=== PATIENT | female | born 1975 | race Two or more races ===

== ENCOUNTER → 2024-07-04 | Outpatient (CLI) | payer MEDICAID, SELFPAY ==
--- NOTE | 2024-07-04 13:00 | XR_ITS ---
Examination: Screening digital mammography, bilateral Computer aided detection 3-D breast Tomosynthesis, bilateral Date and time of exam: July 04, 2024 1306 hours Comparison January 17, 2017 Indication: Screening Technique: Nonmagnified MLO, CC views of the breasts to been obtained, reconstructed from 3-D Tomosynthesis images. R2 computer aided detection program utilized for evaluation of suspicious masses and/or abnormal calcifications. 3-D Tomosynthesis images obtained. Findings: The breasts are heterogeneously dense, which may obscure small masses Benign calcifications 4 mm round mass upper left breast MLO view, 6.6 cm from the nipple Impression: BI-RADS Category 0: Incomplete: Need additional imaging evaluation 4 mm round mass upper left breast MLO view 6.6 cm from the nipple. Recommend follow-up spot tomographic views upper outer quadrant left breast bilateral breast sonography follow-up to complete the workup
== END | disposition home or self-care (01) ==
PROVIDERS: PCP Family Medicine; Referring Provider Family Medicine; Visit Provider Family Medicine
DX: Z12.31 Encounter for screening mammogram for malignant neoplasm of breast (principal); R92.8 Other abnormal and inconclusive findings on diagnostic imaging of breast; N63.21 Unspecified lump in the left breast, upper outer quadrant
CPT/HCPCS: 77063; 77067

== ENCOUNTER → 2024-08-21 | Outpatient (CLI) | payer MEDICAID, SELFPAY ==
--- NOTE | 2024-08-21 07:30 | XR_ITS ---
Examination: Breast ultrasound complete, bilateral Date and time of exam: August 21, 2024 0727 hrs. Indications: Mammogram July 04, 2024 4 mm round mass upper left breast Technique: Real-time grayscale ultrasonographic imaging bilateral breasts, including all 4 quadrants as well as nipple retroareolar and axillary regions. Findings: Sonographic images right breast 9:00 cyst 8 x 8 mm 10:00 cyst 6 x 5 mm No solid nodules Sonographic images left breast 2:00 cyst 23 x 19 mm Retroareolar cyst 9 x 9 mm No solid nodules Impression: BI-RADS Category 2: Benign findings
--- NOTE | 2024-08-21 08:30 | XR_ITS ---
Examination: Diagnostic digital mammography, unilateral, left Computer aided detection 3-D breast Tomosynthesis, unilateral Date and time of exam: 06/20/2025, 7:55 AM Comparisons: January 11, 2017, June 2024 Indications: Follow-up evaluation of left breast mass seen on recent screening exam. Technique: Nonmagnified MLO, CC views of the left breast have been obtained, reconstructed from 3-D Tomosynthesis images. R2 computer aided detection program utilized for evaluation of suspicious masses and/or abnormal calcifications. 3-D Tomosynthesis images obtained. Technologist: Findings: The breasts are heterogeneously dense, which may obscure small masses. No evidence of abnormal masses or suspicious calcifications. The previously described abnormality does not persist on spot compression views and represents superimposition of normal fibroglandular tissue Impression: BI-RADS category 1: Negative findings (within normal) Recommend 1 year follow-up mammogram
== END | disposition home or self-care (01) ==
LOC: CDIM 07:14
PROVIDERS: Referring Provider Family Medicine; Visit Provider Family Medicine
DX: R92.312 Mammographic fatty tissue density, left breast (principal); N60.01 Solitary cyst of right breast; N60.02 Solitary cyst of left breast
CPT/HCPCS: 76641; 77061; 77065; G0279